=== PATIENT | male | born 1985 | race Caucasian/White ===

== ENCOUNTER 2018-03-23 15:56 | Emergency (ER) | payer SELFPAY ==
[2018-03-23] MEDS: IBUPROFEN 800 MG TABLET. PO (16:43)
== END 2018-03-23 16:44 | disposition home or self-care (01) ==
LOC: ER 16:44
DX: K04.7 Periapical abscess without sinus (principal); K02.9 Dental caries, unspecified; F17.200 Nicotine dependence, unspecified, uncomplicated
CPT/HCPCS: 99283